=== PATIENT | female | born 1970 | race Caucasian/White ===

== ENCOUNTER 2019-11-30 10:09 | Emergency (ER) | payer MEDICAID ==
[~2019-11-30] VITALS: Ht 170.2 cm; Wt 65.0 kg
[2019-11-30] MEDS ORDERED: mag hydrox/Alum hydrox/simeth 30ml oral suspension PO ONE (11:20)
[2019-11-30] MEDS ORDERED: LIDOcaine Viscous 15ml cup MM ONE (11:20)
[2019-11-30] MEDS ORDERED: normal saline 1000ML IV soln IVB ONE (11:20)
[2019-11-30] MEDS ORDERED: ondansetron/PF 4mg/2ml inj IV ONE (11:20)
[2019-11-30 11:29] LABS: BASOPHILS % (AUTO) 0.4 % (0-1); EOSINOPHILS # (AUTO) 0.2 X10'3 (0-0.9); EOSINOPHILS % (AUTO) 3.4 % (0-6); HEMATOCRIT 41.3 % (35.0-45.0); HEMOGLOBIN 13.8 g/dl (12.0-16.0); LYMPHOCYTES # (AUTO) 1.5 X10'3 (1.1-4.8); LYMPHOCYTES % (AUTO) 22.9 % (21-51); MEAN CORPUSCULAR HGB CONC 33.5 g/dL (33.0-36.5); MEAN CORPUSCULAR VOLUME 92.7 FL (78-98); MEAN PLATELET VOLUME 7.8 FL (7.4-10.4); MONOCYTES # (AUTO) 0.7 X10'3 (0-0.9); MONOCYTES % (AUTO) 11.7 % (2-12); NEUTROPHILS # (AUTO) 3.9 X10'3 (1.8-7.7); NEUTROPHILS % (AUTO) 61.6 % (42-75); PLATELET COUNT 266 X10'3 (140-440); RED BLOOD COUNT 4.45 X10'6 (4.20-5.60); RED CELL DISTRIBUTION WIDTH 12.8 % (11.5-14.5); WHITE BLOOD COUNT 6.3 X10'3 (4.5-11.0)
[2019-11-30 11:44] LABS: CLARITY,URINE CLOUDY (Clear); COLOR,URINE YELLOW (Yellow); GLUCOSE, URINE NEGATIVE (Neg); KETONES,URINE NEGATIVE (Neg); LEUKOCYTE ESTERASE ,URINE NEGATIVE (Neg); NITRITES, URINE NEGATIVE (Neg); OCCULT BLOOD,URINE TRACE-INTACT (Neg); PH,URINE 5.5 (4.8-8.0); PROTEIN,URINE NEGATIVE (Neg); UA COLLECTION TYPE CLN CATCH MIDSTREAM; UROBILINOGEN,URINE 0.2 E.U/dL (0.2-1.0)
[2019-11-30 11:45] LABS: ALANINE AMINOTRANSFERASE 11 U/L (12-78); ALBUMIN 2.8 G/DL (3.4-5.0); ALBUMIN/GLOBULIN RATIO 0.7 (1.1-1.5); ALKALINE PHOSPHATASE 49 IU/L (46-116); ANION GAP 10 (8-16); ASPARTATE AMINO TRANSFERASE 14 U/L (10-37); BILIRUBIN,TOTAL 0.1 MG/DL (0.1-1.0); BLOOD UREA NITROGEN 13 MG/DL (7-18); BUN/CREATININE RATIO 14.1 (6.6-38.0); CALCIUM 8.2 MG/DL (8.5-10.1); CHLORIDE 104 MMOL/L (99-107); CREATININE 0.92 MG/DL (0.40-0.90); GLUCOSE 117 MG/DL (70-104); LIPASE 196 U/L (73-393); MAGNESIUM 1.7 MG/DL (1.5-2.4); POTASSIUM 3.4 MMOL/L (3.5-5.1); SODIUM 139 MMOL/L (135-145); TOTAL CARBON DIOXIDE 24.9 MMOL/L (24-32); TOTAL PROTEIN 6.6 G/DL (6.4-8.2); eGFR 65 ML/MIN
[2019-11-30 12:05] LABS: BACTERIA,URINE 2+ /HPF (Neg); CAL OXALATE CRYSTALS 1+ /HPF (NEGATIVE); MUCUS STRANDS MANY /LPF (Neg); RBC,URINE 0-2 /HPF (0-2); SQUAMOUS EPITHELIAL CELL,UR MANY /LPF (FEW); WBC,URINE 0-4 /HPF (0-4)
[2019-11-30] MEDS ORDERED: pantoprazole 40 MG vial IV ONE (12:50)
[2019-11-30] MEDS ORDERED: PANT-47 PO (12:50)
[2019-11-30] MEDS ORDERED: ONDA4TAB6 PO (13:25)
[2019-11-30 13:29] VITALS: BP 106/67
[2019-12-01 09:37] LABS: OCCULT BLOOD STOOL POSITIVE (Neg)
--- NOTE | 2019-12-05 10:39 | NUR ---
PT CALLED REGARDING LAB RESULTS AND NEED FOR ABX; MESSAGE LEFT TO CALL [facility]
--- NOTE | 2019-12-07 09:55 | NUR ---
Patient was called for the third time, voicemail left. letter will be sent. Per Dr. Arredondo, he would like to place patient on augmentin 875 mg PO BID x14 days for positive stool sample, resulted positive for salmonella.
== END 2019-11-30 13:30 | disposition home or self-care (01) ==
LOC: ER 10:10
DX: R10.84 Generalized abdominal pain (principal); R19.7 Diarrhea, unspecified; R53.1 Weakness; Z90.49 Acquired absence of other specified parts of digestive tract; Z79.899 Other long term (current) drug therapy
CPT/HCPCS: 36415; 80053; 81001; 82272; 83690; 83735; 85025; 87045; 87046; 87077; 87186; 96374; 96375; 99284; C9113; J2405; J7030; 87177; 87209; 87328; 87329; 87336

== ENCOUNTER 2021-01-08 09:18 | Emergency (ER) | payer MEDICAID ==
[~2021-01-08] VITALS: Ht 162.6 cm; Wt 59.9 kg
[~2021-01-08 09:18] MED LIST: ONDA4TAB6 PO; PANT-47 PO
--- NOTE | 2021-01-08 10:40 | NUR ---
C/O severe posterior VILLAGRAN that radiates down her back.
[2021-01-08] MEDS ORDERED: ondansetron/PF 4mg/2ml inj IV ONE (10:55)
[2021-01-08] MEDS ORDERED: diphenhydrAMINE 50 mg/ml inj IV ONE (10:55)
[2021-01-08] MEDS ORDERED: ketorolac tromethamine 15mg/ml inj. IV ONE (10:55)
[2021-01-08] MEDS ORDERED: proCHLORperazine 10 MG/2 ml inj IV ONE (11:30)
[2021-01-08] MEDS ORDERED: ketorolac trometh. 30mg/ml inj. IV ONE (11:30)
[2021-01-08] MEDS ORDERED: acetaminophen 325mg tablet PO ONE (11:30)
[2021-01-08] MEDS ORDERED: SUMAtriptan succ. 6 MG/0.5ml vial SQ ONE (11:30)
[2021-01-08] MEDS ORDERED: normal saline 1000ml 1,000 ML IV ONE (11:35)
--- NOTE | 2021-01-08 12:50 | NUR ---
Pt given and understands d/c instructions.
[2021-01-08 13:39] VITALS: BP 137/87
== END 2021-01-08 12:30 | disposition home or self-care (01) ==
LOC: ER 09:19
DX: G43.909 Migraine, unspecified, not intractable, without status migrainosus (principal); R11.0 Nausea; Z90.89 Acquired absence of other organs; Z79.899 Other long term (current) drug therapy
CPT/HCPCS: 70450; 96361; 96372; 96374; 96375; 96376; 99284; J0780; J1200; J1885; J2405; J7030; J3030

== ENCOUNTER 2021-01-10 18:47 | Emergency (ER) | payer MEDICAID ==
[~2021-01-10] VITALS: Ht 162.6 cm; Wt 62.5 kg
[2021-01-10 18:56] VITALS: BP 119/78
--- NOTE | 2021-01-10 19:03 | NUR ---
PT SEEN AND ASSESSED BY PROVIDER IN TRIAGE ROOM .
--- NOTE | 2021-01-10 19:10 | NUR ---
URINE SENT TO LAB ORDERED
--- NOTE | 2021-01-10 19:15 | NUR ---
PT WAITING IN CAR, PHONE NUMBER ON LABEL SHEET
[2021-01-10 19:29] LABS: CLARITY,URINE CLEAR (Clear); COLOR,URINE YELLOW (Yellow); GLUCOSE, URINE NEGATIVE (Neg); KETONES,URINE NEGATIVE (Neg); LEUKOCYTE ESTERASE ,URINE NEGATIVE (Neg); NITRITES, URINE NEGATIVE (Neg); OCCULT BLOOD,URINE NEGATIVE (Neg); PROTEIN,URINE NEGATIVE (Neg); UROBILINOGEN,URINE 0.2 E.U/dL (0.2-1.0)
[2021-01-10 19:32] LABS: UA COLLECTION TYPE NON-SPECIFIED
[2021-01-10] MEDS ORDERED: diphenhydrAMINE 50 mg/ml inj IV ONE (20:30)
[2021-01-10] MEDS ORDERED: ketorolac trometh. 30mg/ml inj. IV ONE (20:30)
[2021-01-10] MEDS ORDERED: normal saline 1000ml 1,000 ML IV ONE (20:30)
[2021-01-10] MEDS ORDERED: proCHLORperazine 10 MG/2 ml inj IV ONE (20:30)
[2021-01-10] MEDS ORDERED: IBUP-1984 PO (20:35)
== END 2021-01-10 20:48 | disposition home or self-care (01) ==
LOC: ER 18:49
DX: G43.909 Migraine, unspecified, not intractable, without status migrainosus (principal); Z20.822 Contact with and (suspected) exposure to COVID-19; Z90.89 Acquired absence of other organs; Z79.899 Other long term (current) drug therapy
CPT/HCPCS: 81003; 87635; 96374; 99283; C9803; J1885

== ENCOUNTER 2023-05-19 19:15 | Emergency (ER) | payer OTHER, MEDICAID ==
[~2023-05-19] VITALS: Ht 162.6 cm; Wt 130.0 kg
[2023-05-19] MEDS ORDERED: proparacaine 0.5% ophthalmic drops 15ml EACHEYE ONE (20:55)
[2023-05-19] MEDS ORDERED: fluorescein sod 1mg ophthalmic strip LEFTEYE ONE (20:55)
[2023-05-19] MEDS ORDERED: erythromycin ophthalmic ointment 1gm tube RIGHTEYE ONE (21:55)
[2023-05-19 22:06] VITALS: BP 120/90; PULSE 76; RESP 16; TEMP 98; O2SAT 99
== END 2023-05-19 22:08 | disposition home or self-care (01) ==
LOC: ER 19:15
DX: H57.8A1 Foreign body sensation, right eye (principal)
CPT/HCPCS: 99283